=== PATIENT | female | born 1945 | race Asian ===

== ENCOUNTER 2019-01-18 18:17 | Inpatient (IN) | payer OTHER ==
[~2019-01-18] VITALS: Ht 157.5 cm; Wt 66.4 kg
--- NOTE | 2019-01-18 18:39 | NUR ---
JOSS CH AT BEDSIDE FOR MSE.
[2019-01-18] MEDS ORDERED: MORPHINE SULFATE 2 MG/1 ML DISP.SYRIN IV ONE (18:45)
[2019-01-18] MEDS ORDERED: ONDANSETRON 4 MG/2 ML VIAL IV ONE (18:45)
[2019-01-18] MEDS ORDERED: IV NORMAL SALINE 1000 ML BAG IV ONE (18:45)
[2019-01-18 19:02] LABS: BASOPHILS # (AUTO) 0.1 K/uL (0.0-8.0); BASOPHILS % (AUTO) 1.3 % (0.0-2.0); EOSINOPHILS # (AUTO) 0.4 K/uL (0.0-0.7); EOSINOPHILS % (AUTO) 5.4 % (0.0-7.0); HEMATOCRIT 39.6 % (31.2-41.9); HEMOGLOBIN 13.2 g/dL (10.9-14.3); LYMPHOCYTES # (AUTO) 1.6 K/uL (20.0-40.0); MEAN CORPUSCULAR HEMOGLOBIN 30.7 uug (24.7-32.8); MEAN CORPUSCULAR HGB CONC 33 g/dL (32.3-35.6); MEAN CORPUSCULAR VOLUME 92.1 fL (75.5-95.3); MONOCYTES # (AUTO) 0.7 K/uL (2.0-10.0); MONOCYTES % (AUTO) 8.5 % (0.0-11.0); NEUTROPHILS % (AUTO) 63.8 % (38.5-71.5); PLATELET COUNT (AUTO) 174 K/uL (179-408); WHITE BLOOD COUNT (AUTO) 7.8 K/uL (3.8-11.8)
[2019-01-18] MEDS ORDERED: ONDANSETRON 4 MG/2 ML VIAL ONE (19:05)
[2019-01-18] MEDS ORDERED: MORPHINE SULFATE 2 MG/1 ML DISP.SYRIN ONE (19:05)
--- NOTE | 2019-01-18 19:07 | NUR ---
PT TAKEN TO RADIOLOGY FOR CT SCAN.
--- NOTE | 2019-01-18 19:09 | NUR ---
SHIFT REPORT GIVEN TO CELI Up RN.
[2019-01-18 19:10] LABS: CARBON DIOXIDE 27 mmol/L (21-32); CHLORIDE 101 mmol/L (98-107); CREATININE 1.1 mg/dL (0.6-1.3); GLUCOSE 181 mg/dL (74-106); POTASSIUM 4.6 mmol/L (3.5-5.1); UREA NITROGEN, BLOOD 22 mg/dL (7-18)
[2019-01-18 19:22] LABS: ALANINE AMINOTRANSFERASE 77 U/L (14-59); ALKALINE PHOSPHATASE 288 U/L (50-136); ASPARTATE AMINOTRANSFERASE 150 U/L (15-37); BILIRUBIN,DIRECT < 0.1 mg/dL (0.0-0.2); BILIRUBIN,TOTAL 0.7 mg/dL (0.2-1.0); TOTAL PROTEIN, SERUM 7.8 g/dL (6.4-8.2)
[2019-01-18 19:39] LABS: LIPASE 266 U/L (73-393)
[2019-01-18] MEDS ORDERED: MORPHINE SULFATE 4 MG/1 ML DISP.SYRIN ONE (20:37)
[2019-01-18] MEDS: MORPHINE SULFATE 4 MG/1 ML DISP.SYRIN IV ONE ×2 (20:37→20:38)
--- NOTE | 2019-01-18 21:00 | NUR ---
PATIENT STATES PAIN IS 6/10 FROM 10/10 PAIN
[2019-01-18 21:10] LABS: *BILIRUBIN,URIN NEGATIVE (NEGATIVE); *BLOOD, URINE NEGATIVE (NEGATIVE); *CLARITY,URINE CLEAR (CLEAR); *COLOR,URINE YELLOW (YELLOW); *KETONES,URINE NEGATIVE (NEGATIVE); *UROBILINOGEN,URINE 0.2 E.U./dl (NORMAL); LEUKOCYTE ESTERASE ,URINE NEGATIVE (NEGATIVE); NITRITE, URINE NEGATIVE (NEGATIVE); UGLUCOSE NEGATIVE (NEGATIVE)
[2019-01-18 21:18] LABS: BACTERIA,URINE NONE SEEN /HPF (NONE SEEN); RBC,URINE NONE SEEN /HPF (0-3); WBC,URINE 0-3 /HPF (0-3)
[2019-01-18 21:19] LABS: SQUAMOUS EPITHELIAL CELL,UR FEW /HPF (NONE SEEN)
[2019-01-18] MEDS ORDERED: CHOL10005 PO (21:37)
[2019-01-18] MEDS ORDERED: ATOR20TA PO (21:37)
[2019-01-18] MEDS ORDERED: ALBU8.5H8 IH (21:37)
[2019-01-18] MEDS ORDERED: LISI10TA5 PO (21:37)
[2019-01-18] MEDS ORDERED: BECLOMETHASONE INH (21:37)
[2019-01-18] MEDS ORDERED: AMLO10TA7 PO (21:37)
[2019-01-18] MEDS ORDERED: CALC260T6 PO (21:37)
--- NOTE | 2019-01-18 22:16 | NUR ---
TRANSFERED TO 3RD FLOOR MED SURG
--- NOTE | 2019-01-18 22:25 | NUR ---
RECEIVED PT FROM ER VIA [facility]. 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 UNDER [employer]. PT SHOWS O SIGNS OF ACUTE DISTRESS. PT IV INTACT. SAFETY AND COMFORT PROVIDED. [facility] ASSESSMENT DONE. ADMISSION PROCESS AND CARE PLAN INITIATED. WILL CONTINUE TO MONITOR.
[2019-01-18 22:41] VITALS: BP 155/70
[2019-01-18] MEDS ORDERED: ZOLPIDEM 5 MG TABLET PO PRN (22:45)
[2019-01-18] MEDS ORDERED: Z GUARD REMEDY PASTE 57 GM TUBE TOP PRN (22:45)
[2019-01-18] MEDS ORDERED: MORPHINE SULFATE 2 MG/1 ML DISP.SYRIN IV PRN (22:45)
[2019-01-18] MEDS ORDERED: ACETAMINOPHEN 325 MG TABLET PO PRN (22:45)
[2019-01-18] MEDS ORDERED: ONDANSETRON 4 MG/2 ML VIAL IV PRN (22:45)
[2019-01-18] MEDS ORDERED: ALBUTEROL SULFATE 8 GM HFA.AER.AD IH PRN (22:45)
[2019-01-18] MEDS: IV NS 1000 ML 1,000 ML IV PRN (23:14)
[2019-01-19 06:14] VITALS: BP 145/65
--- NOTE | 2019-01-19 06:16 | NUR ---
PT SLEPT THROUGHOUT THE SHIFT. PT SHOWS NO SIGNS OF ACUTE DISTRESS. PT IV INTACT. SAFETY AND COMFORT PROVIDED. PRESCRIBED MEDICATION GIVEN AND PT TOLERATED IT WELL. .SAFETY AND COMFORT PROVIDED. ALL NEEDS ARE MET. WILL ENDORSE ACCORDINGLY TO INCOMING NURSE FOR CONTINUITY OF CARE.
[2019-01-19 06:46] LABS: BASOPHILS % (AUTO) 0.8 % (0.0-2.0); EOSINOPHILS # (AUTO) 0.3 K/uL (0.0-0.7); EOSINOPHILS % (AUTO) 5.9 % (0.0-7.0); LYMPHOCYTES # (AUTO) 1.6 K/uL (20.0-40.0); LYMPHOCYTES % (AUTO) 29.1 % (20.5-51.5); MEAN CORPUSCULAR HEMOGLOBIN 30.8 uug (24.7-32.8); MEAN CORPUSCULAR HGB CONC 33 g/dL (32.3-35.6); MEAN CORPUSCULAR VOLUME 92.2 fL (75.5-95.3); MONOCYTES # (AUTO) 0.5 K/uL (2.0-10.0); MONOCYTES % (AUTO) 8.7 % (0.0-11.0); NEUTROPHILS % (AUTO) 55.5 % (38.5-71.5); RED BLOOD CELL COUNT(AUTO) 3.58 MIL/uL (3.63-4.92)
[2019-01-19 06:57] LABS: THYROID STIMULATING HORMONE 3.282 mIU/mL (0.358-3.740)
[2019-01-19 06:59] LABS: ALANINE AMINOTRANSFERASE 59 U/L (14-59); ALKALINE PHOSPHATASE 217 U/L (50-136); ASPARTATE AMINOTRANSFERASE 70 U/L (15-37); BILIRUBIN,TOTAL 0.7 mg/dL (0.2-1.0); CARBON DIOXIDE 26 mmol/L (21-32); CHLORIDE 108 mmol/L (98-107); CHOLESTEROL 144 mg/dL (<200); CREATININE 0.9 mg/dL (0.6-1.3); GLUCOSE 112 mg/dL (74-106); HDL CHOLESTEROL 61 mg/dL (40-60); MAGNESIUM 1.6 mg/dL (1.8-2.4); PHOSPHOROUS 3.7 mg/dL (2.5-4.9); POTASSIUM 3.7 mmol/L (3.5-5.1); TOTAL PROTEIN, SERUM 5.9 g/dL (6.4-8.2); TRIGLYCERIDES 96 MG/DL (30-150); UREA NITROGEN, BLOOD 19 mg/dL (7-18)
[2019-01-19 07:00] LABS: WHITE BLOOD COUNT (AUTO) 5.5 K/uL (3.8-11.8)
[2019-01-19 07:01] LABS: PLATELET COUNT (AUTO) 120 K/uL (179-408)
[2019-01-19] MEDS ORDERED: FLUTICASONE/VILANTEROL 1 EACH BLST.W.DEV INH SCH (09:00)
[2019-01-19] MEDS ORDERED: BUDESONIDE 0.5 MG/2 ML NEBU NEB SCH (09:00)
[2019-01-19] MEDS: AMLODIPINE 10 MG TABLET PO SCH (09:24)
[2019-01-19] MEDS: LISINOPRIL 10 MG TABLET PO SCH (09:24)
[2019-01-19] MEDS: BUDESONIDE 0.5 MG/2 ML NEBU NEB SCH ×2 (10:05→19:16)
[2019-01-19] MEDS: ALBUTEROL SULFATE 2.5 MG/3 ML NEBU NEB PRN ×2 (10:10→23:27)
[2019-01-19 13:30] VITALS: BP 135/63
[2019-01-19] MEDS: MAGNESIUM SULFATE/D5W 100 ML IV SCH ×2 (14:15→15:56)
[2019-01-19] MEDS: IV NS 1000 ML 1,000 ML IV PRN (14:16)
[2019-01-19 15:30] VITALS: BP 127/62
[2019-01-19] MEDS ORDERED: SWABABLE VALVE TRANSFER SET EA MC ONE (17:20)
[2019-01-19] MEDS ORDERED: NORMAL SALINE FLUSH 10 ML DISP.SYRIN ONE (17:20)
[2019-01-19] MEDS ORDERED: IV NORMAL SALINE 250 ML IV ONE (17:20)
[2019-01-19] MEDS ORDERED: IOHEXOL 300MG/ML 100 ML INFUS..BTL ONE (17:20)
--- NOTE | 2019-01-19 19:28 | NUR ---
RECEIVED PT ALERT, AWAKE, AND ORIENTEDX4. PT SHOWS NO SIGNS OF ACUTE DISTRESS. PT IV INTACT. SAFETY AND COMFORT PROVIDED. WILL CONTINUE TO MONITOR.
[2019-01-19 20:00] VITALS: BP 173/82
[2019-01-19] MEDS: ATORVASTATIN 20 MG TABLET PO SCH (21:18)
[2019-01-20 06:09] VITALS: BP 140/64
[2019-01-20 06:41] LABS: BASOPHILS % (AUTO) 0.7 % (0.0-2.0); EOSINOPHILS # (AUTO) 0.3 K/uL (0.0-0.7); EOSINOPHILS % (AUTO) 5.2 % (0.0-7.0); HEMATOCRIT 33.2 % (31.2-41.9); LYMPHOCYTES # (AUTO) 1.1 K/uL (20.0-40.0); LYMPHOCYTES % (AUTO) 22.2 % (20.5-51.5); MEAN CORPUSCULAR HEMOGLOBIN 30.7 uug (24.7-32.8); MEAN CORPUSCULAR HGB CONC 33 g/dL (32.3-35.6); MEAN CORPUSCULAR VOLUME 92.5 fL (75.5-95.3); MONOCYTES # (AUTO) 0.4 K/uL (2.0-10.0); MONOCYTES % (AUTO) 7.8 % (0.0-11.0); NEUTROPHILS # (AUTO) 3.2 K/uL (1.8-8.9); NEUTROPHILS % (AUTO) 64.1 % (38.5-71.5); PLATELET COUNT (AUTO) 123 K/uL (179-408); RED BLOOD CELL COUNT(AUTO) 3.59 MIL/uL (3.63-4.92)
--- NOTE | 2019-01-20 06:41 | NUR ---
PT SLEPT THROUGHOUT THE SHIFT. PT SHOWS NO SIGNS OF ACUTE DISTRESS. PRESCRIBED MEDICATION GIVEN AND PT TOLERATED IT WELL. SAFETY AND COMFORT PROVIDED.ALL NEEDS ARE MET. WILL ENDORSE ACCORDINGLY TO INCOMING NURSE FOR CONTINUITY OF CARE.
[2019-01-20 06:58] LABS: ALANINE AMINOTRANSFERASE 53 U/L (14-59); ALKALINE PHOSPHATASE 241 U/L (50-136); ASPARTATE AMINOTRANSFERASE 70 U/L (15-37); BILIRUBIN,TOTAL 0.8 mg/dL (0.2-1.0); CARBON DIOXIDE 27 mmol/L (21-32); CHLORIDE 107 mmol/L (98-107); GLUCOSE 118 mg/dL (74-106); LIPASE 190 U/L (73-393); MAGNESIUM 1.9 mg/dL (1.8-2.4); PHOSPHOROUS 3.2 mg/dL (2.5-4.9); POTASSIUM 3.4 mmol/L (3.5-5.1); UREA NITROGEN, BLOOD 13 mg/dL (7-18)
[2019-01-20 07:05] LABS: THYROID STIMULATING HORMONE 1.701 mIU/mL (0.358-3.740)
[2019-01-20] MEDS: BUDESONIDE 0.5 MG/2 ML NEBU NEB SCH ×2 (08:14→20:56)
[2019-01-20] MEDS: ALBUTEROL SULFATE 2.5 MG/3 ML NEBU NEB PRN ×2 (08:14→20:56)
[2019-01-20] MEDS: LISINOPRIL 10 MG TABLET PO SCH (08:24)
[2019-01-20] MEDS: AMLODIPINE 10 MG TABLET PO SCH (08:24)
[2019-01-20] MEDS ORDERED: POTASSIUM CHLORIDE 20 MEQ TAB.PRT.SR PO ONE (09:00)
[2019-01-20] MEDS: IV NS 1000 ML 1,000 ML IV PRN (09:41)
[2019-01-20 11:29] VITALS: BP 134/63
[2019-01-20 12:06] LABS: AFP, TUMOR MARKER 2.1 ng/mL (0.0-8.3)
[2019-01-20 16:16] VITALS: BP 151/70
[2019-01-20 20:00] VITALS: BP 155/63
--- NOTE | 2019-01-20 20:00 | NUR ---
RECEIVED PATIENT AWAKE AND ALERT SITTING IN CHAIR WITH VISITING FAMILY. NO COMPLAINTS OF PAIN OR ACUTE DISTRESS VERBALIZED. VS WNL AND PATIENT IS STABLE. IV SITE IS PATENT AND INTACT. SAFETY AND FALL PRECAUTIONS IN PLACE. BED IN LOWEST POSITION WITH BRAKE APPLIED. 2 SIDE RAILS UP AND LOCKED. CALL EDWARDS AND PERSONAL TIMES WITHIN REACH AT ALL TIMES. PATIENT TO BE NPO AFTER MIDNIGHT FOR CT SCAN TOMORROW. WILL CONTINUE TO MONITOR.
[2019-01-20] MEDS: ATORVASTATIN 20 MG TABLET PO SCH (21:15)
[2019-01-20] MEDS ORDERED: GUAIFENESIN/DEXTROMETHORPHAN 5 ML UDC PO PRN (22:30)
[2019-01-21] VITALS (11 sets, daily range): BP systolic 124–156; BP diastolic 59–89
[2019-01-21] MEDS: IV NS 1000 ML 1,000 ML IV PRN ×2 (00:24→15:36)
--- NOTE | 2019-01-21 05:00 | NUR ---
PATIENT SLEPT COMFORTABLY THROUGHOUT NIGHT WITH NO COMPLAINTS OF PAIN OR ACUTE DISTRESS. PATIENT HAS BEEN NPO SINCE MIDNIGHT FOR PLANNED PROCEDURE THIS MORNING. VS ARE WNL AND PATIENT IS STABLE. SAFETY AND FALL PRECAUTIONS IN PLACE. BED IN LOWEST POSITION WITH BRAKE APPLIED. 2 SIDE RAILS UP AND IN LOCKED POSITION. CALL EDWARDS AND PERSONAL ITEMS WITHIN REACH AT ALL TIMES.
--- NOTE | 2019-01-21 07:34 | NUR ---
RECEIVED PT ALERT, AWAKE, AND ORIENTEDX4. PT SHOWS NO SIGNS OF ACUTE DISTRESS. PT IV INTACT. SAFETY AND COMFORT PROVIDED. WILL CONTINUE TO MONITOR. CALL LIGHT WITH IN REACH
[2019-01-21 08:06] LABS: *IMMUNOGLOBULIN G, SERUM 769 mg/dL (700-1600); HEPATITIS B SURFACE AB Non Reactive (.); HEPATITIS B SURFACE AG Negative (Negative); IMMUNOGLOBULIN A, SERUM 133 mg/dL (64-422); IMMUNOGLOBULIN M, SERUM 55 mg/dL (26-217)
[2019-01-21] MEDS: BUDESONIDE 0.5 MG/2 ML NEBU NEB SCH ×2 (08:14→19:55)
[2019-01-21] MEDS: AMLODIPINE 10 MG TABLET PO SCH (08:36)
[2019-01-21] MEDS: LISINOPRIL 10 MG TABLET PO SCH (08:36)
[2019-01-21 13:10] LABS: A/G RATIO 1.2 (0.7-1.7); ALPHA-1-GLOBULIN 0.3 g/dL (0.0-0.4); ALPHA-2-GLOBULIN 0.8 g/dL (0.4-1.0); BETA GLOBULIN 0.8 g/dL (0.7-1.3); GAMMA GLOBULIN 0.7 g/dL (0.4-1.8); GLOBULIN, TOTAL 2.6 g/dL (2.2-3.9); M-SPIKE Not Observed g/dL (Not Observed)
[2019-01-21] MEDS ORDERED: NALOXONE 2 MG/2 ML SYRINGE IV PRN (13:30)
[2019-01-21] MEDS ORDERED: FENTANYL CITRATE 100 MCG/2 ML AMPUL IV PRN (13:30)
[2019-01-21] MEDS ORDERED: MIDAZOLAM HCL 2 MG/2 ML VIAL IV PRN (13:30)
--- NOTE | 2019-01-21 13:37 | NUR ---
PT WENT TO RADIOLOGY DEPARTMENT FOR PROCEDURE VIA BED IN STABLE CONDITION
[2019-01-21] MEDS ORDERED: LIDOCAINE HCL 1% 20 ML VIAL ONE (14:36)
--- NOTE | 2019-01-21 15:32 | NUR ---
PT RECEIVED BACK FROM RADIOLOGY VIA BED IN STABLE CONDITION
[2019-01-21] MEDS ORDERED: TRAM50TA2 PO (19:15)
== END 2019-01-21 20:30 | disposition home or self-care (01) | DRG 436 ==
LOC: ER 18:19 → MEDSURG3 21:59
PROVIDERS: ADMIT Nurse Practitioner Acute Care; ATTEND Internal Medicine
PROC: 0FB23ZX Excision of Left Lobe Liver, Percutaneous Approach, Diagnostic (ICD-10-PCS; principal; 2019-01-21)
PROC: 0W9G3ZX Drainage of Peritoneal Cavity, Percutaneous Approach, Diagnostic (ICD-10-PCS; 2019-01-21)
DX: C25.2 Malignant neoplasm of tail of pancreas (principal); C78.7 Secondary malignant neoplasm of liver and intrahepatic bile duct; C78.6 Secondary malignant neoplasm of retroperitoneum and peritoneum; R18.0 Malignant ascites; I82.890 Acute embolism and thrombosis of other specified veins; K57.30 Diverticulosis of large intestine without perforation or abscess without bleeding; E78.5 Hyperlipidemia, unspecified; I11.9 Hypertensive heart disease without heart failure; D69.6 Thrombocytopenia, unspecified; J45.909 Unspecified asthma, uncomplicated; Z82.49 Family history of ischemic heart disease and other diseases of the circulatory system; Z83.3 Family history of diabetes mellitus; M19.90 Unspecified osteoarthritis, unspecified site; E87.6 Hypokalemia; I70.0 Atherosclerosis of aorta; E11.9 Type 2 diabetes mellitus without complications; E88.09 Other disorders of plasma-protein metabolism, not elsewhere classified
CPT/HCPCS: 36415; 71045; 74150; 76942; 82105; 82378; 82747; 82784; 83690; 83735; 84100; 84155; 84165; 84443; 85014; 85025; 85610; 85730; 86301; 86334; 86706; 86803; 87086; 87340; 88342; 93005; 94640; 94664; A4663; G0378; J2270; J2405; J3475; J3490; J7030; J7050; Q9967